=== PATIENT | male | born 1980 | race African-American/Black ===

== ENCOUNTER 2019-11-11 01:36 | Emergency (ER) | payer OTHER ==
--- NOTE | 2019-11-11 02:11 | PDOC ---
History of Present Illness - General Chief Complaint: Bite Stated Complaint: DOG BITE Time Seen by Provider: 11/11/19 02:11 History Source: Patient Exam Limitations: No Limitations - History of Present Illness Initial Comments: 11/18/19 00:06 PT WORKS FOR A [employer] AND HE WAS BITTEN BY A LABRADOR DOG WHO WAS UPSET THAT PT WAS TRYING TO PUT HIM IN A PORTABLE CAGE. PT HAS ABRASIONS/SHALLOW LACERATIONS TO HIS HAND/FOREARM Past History - Medical History Allergies/Adverse Reactions: Allergies Allergy/AdvReac Type Severity Reaction Status Date / Time No Known Allergies Allergy Verified 11/11/19 02:00 Home Medications: Ambulatory Orders Amoxicillin/Potassium Clav [Augmentin 875-125 Tablet] 1 each PO BID #14 tablet 11/11/19 - Psycho-Social/Smoking History Smoking History: Never smoked Information on smoking cessation initiated: No - Substance Abuse Hx (Audit-C & DAST Scrn) How often the patient has a drink containing alcohol: Never Score: In Men: 4 or > Positive; In Women: 3 or > Positive: 0 Screen Result (Pos requires Nsg. Audit-10AR): Negative In the last yr the pt used illegal drug/Rx for NonMed reason: No Score: Yes response is considered Positive: 0 Screen Result (Positive result requires Nsg. DAST-10): Negative *Physical Exam - Vital Signs Last Vital Signs Temp Pulse Resp BP Pulse Ox 98.1 F 82 20 117/80 98 11/11/19 01:59 11/11/19 01:59 11/11/19 01:59 11/11/19 01:59 11/11/19 01:59 Discharge - Discharge Information Problems reviewed: Yes Clinical Impression/Diagnosis: Dog bite Condition: Improved Disposition: HOME - Admission No - Additional Discharge Information Prescriptions: Amoxicillin/Potassium Clav [Augmentin 875-125 Tablet] 1 each PO BID #14 tablet - Follow up/Referral - Patient Discharge Instructions Patient Printed Discharge Instructions: DI for Animal Bites - Post Discharge Activity
[2019-11-11] MEDS ORDERED: ACETAMINOPHEN 500 MG TABLET (FP) PO ONE (02:19)
[2019-11-11] MEDS ORDERED: DIPHTH,PERTUSS(ACELL),TET 0.5 ML DISP.SYRIN IM ONE ×2 (02:19→02:24)
[2019-11-11] MEDS ORDERED: AMOX TR/POT CLAV 875MG/125MG TABLETS (FP) PO ONE (02:19)
[2019-11-11 02:28] VITALS: BP 117/80; PULSE 82; TEMP 98.1; BMI 28.3
[2019-11-11] MEDS ORDERED: ACETAMINOPHEN 500 MG TABLET (FP) ONE (02:40)
== END 2019-11-11 03:05 | disposition home or self-care (01) ==
LOC: JER 01:36
PROC: 3E0234Z Introduction of Serum, Toxoid and Vaccine into Muscle, Percutaneous Approach (ICD-10-PCS; principal; 2019-11-11)
DX: W54.0XXA Bitten by dog, initial encounter (principal)
CPT/HCPCS: 90715; 99284-25